=== PATIENT | female | born 1985 | race Caucasian/White ===

== ENCOUNTER 2021-08-24 13:35 | Outpatient (CLI) | payer OTHER | END 2021-08-24 13:38 | disposition home or self-care (01) | LOC: LAB 13:35 | PROVIDERS: ATTEND Student in an Organized Health Care Education/Training Program | DX: Z34.00 Encounter for supervision of normal first pregnancy, unspecified trimester (principal) ==

== ENCOUNTER 2021-08-26 10:29 | Outpatient (CLI) | payer OTHER | END 2021-08-26 10:33 | disposition home or self-care (01) | LOC: LAB 10:29 | PROVIDERS: ATTEND Student in an Organized Health Care Education/Training Program | DX: Z34.00 Encounter for supervision of normal first pregnancy, unspecified trimester (principal) ==

== ENCOUNTER 2021-10-19 08:00 | Outpatient (CLI) | payer OTHER | END 2021-10-19 08:30 | disposition home or self-care (01) | LOC: PPH VACUNA 08:00 | PROVIDERS: ATTEND Emergency Medicine Pediatric Emergency Medicine | DX: Z23 Encounter for immunization (principal) ==

== ENCOUNTER 2022-01-15 08:49 | Outpatient (CLI) | payer OTHER | END 2022-01-15 09:01 | disposition home or self-care (01) | LOC: RX STUDY 08:49 | PROVIDERS: ATTEND Student in an Organized Health Care Education/Training Program | DX: D25.9 Leiomyoma of uterus, unspecified (principal) ==

== ENCOUNTER 2022-03-19 10:03 | Outpatient (CLI) | payer OTHER | END 2022-03-19 10:06 | disposition home or self-care (01) | LOC: SONOGRAMA 10:03 | PROVIDERS: ATTEND Obstetrics & Gynecology Reproductive Endocrinology | DX: D25.9 Leiomyoma of uterus, unspecified (principal) ==

== ENCOUNTER 2022-08-23 07:18 | Outpatient (CLI) | payer OTHER | END 2022-08-23 07:19 | disposition home or self-care (01) | LOC: LAB 07:18 | PROVIDERS: ATTEND Obstetrics & Gynecology Reproductive Endocrinology | DX: Z01.818 Encounter for other preprocedural examination (principal) ==

== ENCOUNTER 2023-02-19 12:54 | Emergency (ER) | payer OTHER ==
[~2023-02-19] VITALS: Ht 162.6 cm; Wt 68.0 kg
== END 2023-02-19 17:25 | disposition home or self-care (01) ==
LOC: ER 12:54
DX: R51.9 Headache, unspecified (principal)

== ENCOUNTER 2023-10-08 10:07 | Outpatient (CLI) | payer OTHER | END 2023-10-08 10:10 | disposition home or self-care (01) | LOC: SONOGRAMA 10:07 | DX: N84.0 Polyp of corpus uteri (principal) ==

== ENCOUNTER 2023-10-30 12:10 | Outpatient (CLI) | payer OTHER | END 2023-10-30 12:18 | disposition home or self-care (01) | LOC: SONOGRAMA 12:10 | PROVIDERS: ATTEND Internal Medicine Cardiovascular Disease | DX: E03.9 Hypothyroidism, unspecified (principal); E04.1 Nontoxic single thyroid nodule ==

== ENCOUNTER 2023-11-07 13:28 | Outpatient (CLI) | payer OTHER | END 2023-11-07 13:29 | disposition home or self-care (01) | LOC: SONOGRAMA 13:28 | PROVIDERS: ATTEND Pathology Anatomic Pathology & Clinical Pathology | DX: D34 Benign neoplasm of thyroid gland (principal); E06.3 Autoimmune thyroiditis ==